=== PATIENT | female | born 1995 | race Caucasian/White ===

== ENCOUNTER 2018-08-12 05:00 | Inpatient (IN) ==
[2018-08-12] MEDS ORDERED: Famotidine 20 MG/2 ML VIAL IVP PRN (05:24)
[2018-08-12] MEDS ORDERED: *HR* Nalbuphine 10 MG/ML AMPUL IVP PRN (05:24)
[2018-08-12] MEDS ORDERED: Ondansetron 4 MG/2 ML VIAL IVP PRN (05:24)
[2018-08-12] MEDS ORDERED: Naloxone 0.4 MG/ML INJ IVP PRN (05:24)
[2018-08-12] MEDS ORDERED: Ringers Solution, Lactated 1,000 ML IVC SCH (05:30)
[2018-08-12] MEDS ORDERED: Oxytocin 20 units/ LR 1000 mL 20 UNIT/1,000 ML BAG IVC SCH ×2 (06:00→16:15)
[2018-08-12 06:15] LABS: Amphetamine Screen,Urine Negative ng/mL (Cutoff=1000); Barbiturate Screen,Urine Negative ng/mL (Cutoff=200); Benzodiazepines Screen,Urine Negative ng/mL (Cutoff=300)
[2018-08-12 06:16] LABS: Cannabinoid Screen,Urine Negative ng/mL (Cutoff = 50); Cocaine Screen,Urine Negative ng/mL (Cutoff= 300); Opiate Screen,Urine Negative ng/mL (Cutoff=300); Phencyclidine Screen,Urine Negative ng/mL (Cutoff=25)
[2018-08-12 06:24] LABS: Basophils % 0.2 %; Eosinophils # 0.1 K/mcL (0.0-0.6); Eosinophils % 0.5 %; Hematocrit 35.1 % (35.3-44.9); Immature Granulocytes % 0.4 % (0-4); Lymphocytes # 2.5 K/mcL (0.6-4.6); Mean Corpuscular HGB Conc 31.3 g/dL (31.6-35.5); Mean Corpuscular Hemoglobin 24.9 pg (28.0-33.3); Mean Corpuscular Volume 79.4 fL (83.0-100.0); Mean Platelet Volume 10.8 fL (9.4-12.4); Monocytes # 0.7 K/mcL (0.0-1.3); Neutrophils # 8.6 K/mcL (1.6-8.9); Platelet Count 289 K/mcL (140-400); Red Blood Count 4.42 M/mcL (3.82-4.97); Red Cell Distribution Width 13.9 % (11.5-14.5); Segmented Neutrophils % 71.9 %
--- NOTE | 2018-08-12 07:45 | Anesthesia Evaluation PreOp ---
Date of Encounter: 08/12/18 Time of Encounter: 07:43 - Past History Planned Operation: rafat Cardiac History: Denies any Significant Hx Pulmonary History: Denies Any Significant HX VIOLIN RESTORER History: Denies Any Significant HX Other Medical History: Other (Occasional lower back pain since last delivery) Anesthesia History: No Prior Anesthetic Complications, Past Anesthesia : Yes (39 weeks, ) Alcohol Use: none Drug use: none Medications and Allergies Vits96/Iron Fum/Folic [ Tablet] 1 each PO DAILY 08/12/18 [History] Allergy/AdvReac Type Severity Reaction Status Date / Time Amoxicillin Allergy Rash Verified 08/12/18 06:13 - Meds/Allergy Pre-op Review Medications Reviewed: Yes Allergies Reviewed: Yes Beta Blockers on Current Med List: No Anesthesia Results - Labs 08/12/18 05:36 Anesthesia Exam O2 Sat Height 1.57 m Weight 81.193 kg Height: 62 Weight: 179 - HEENT Pupil (Motor): Pupils equal Mallampati: II Teeth: Normal Oral Opening: Greater than 3 - VIOLIN RESTORER LOC: Oriented VIOLIN RESTORER Motor: Normal RUE, Normal LUE, Normal RLE, Normal LLE, Normal Face VIOLIN RESTORER Sensory: Normal: RUE, LUE, RLE, LLE, Face - Cardiac Rhythm: Regular Murmur: None JVD: No Carotid Bruit: No - Pulmonary Respiratory Effort: Symmetrical Anesthesia Assess/Plan ASA Score: 2 Level of consciousness: Cooperative Anesthetic Plan: Epidural Monitoring Plan: Standard Monitors
--- NOTE | 2018-08-12 10:34 | OB Labor Progress Note ---
Date of Encounter: 08/12/18 Time of Encounter: 10:31 Labor Progress Note - Subjective Subjective: Pt reports mild discomfort with contractions. - Cervix Cervix: 3-4/70/-2 - Heart Tones Heart Tones: Category I - [place]: 2-4 minutes - Interventions Interventions: Cook catheter placed using sterile technique. Balloon inflated with 60ml in uterus and 60ml in vagina. Pt tolerated well. - Plan Physician notified: Yes Physician notified details: Dr. Light notified of SVE and murillo placement. Plan: Continue to monitor and titrate pitocin. AROM when murillo out. Anticipate .
[2018-08-12] MEDS ORDERED: Epidural Premix (fent/bupiv) 110 ML EP ONE (10:58)
[2018-08-12] MEDS ORDERED: *HR* Ropivacaine/PF 0.2% 20 ML VIAL ONE (10:59)
[2018-08-12] MEDS ORDERED: Lidocaine -MPF 1% 5 ML AMPUL ONE (10:59)
[2018-08-12] MEDS ORDERED: *HR* FentaNYL (PF) 100 MCG/2 ML VIAL ONE (10:59)
--- NOTE | 2018-08-12 11:24 | Anesthesia Procedures ---
Addendum entered and electronically signed by Feng Ellis CRNA 08/12/18 18:39: Infant Delivery Date: 08/12/18 Delivery Time: 15:52 Original Note: Date of Encounter: 08/12/18 Time of Encounter: 10:50 (procedure end time 1125) Procedures: Anesthesia - Epidural/Spinal Patient ID/Chart reviewed: Yes Patient examined: Yes OB Eval: Gestational age: 39 OB Eval: : 2 OB Eval: Hx Para: 1 OB Eval: Contractions: Non-stressed pattern Consent Obtained: Yes Supplemental Oxygen: None/Room Air Site Prep: Aseptic Technique Patient position: upright Local Anesthetic: Lidocaine 1% Amount of Local Anesthetic used: 2 Touhy Needle Gauge: 18 Touhy Needle Depth (cm): 5 Test Dose (1.5% Lido + Epi): Volume given (mls): 3 Test Dose Result: Negative Loading Dose: Fentanyl (mcg): 100 Loading Dose: Other: 5cc 0.2% ropivicaine Loading Dose Administered: Thru Touhy Needle Infusion Med: 0.125% Bupivacaine w/ 2 mcg/ml Fentanyl Infusion Rate (mls/hr): [address]: Tegaderm Interspace Used: L3-L4 Loss of Resistance (MUMTAZ): Yes Blood: No CSF: No Paresthesia: No
[2018-08-12] MEDS ORDERED: Epidural Premix (fent/bupiv) 110 ML EP SCH (11:30)
--- NOTE | 2018-08-12 12:37 | OB Labor Progress Note ---
Date of Encounter: 08/12/18 Time of Encounter: 12:34 Labor Progress Note - Subjective Subjective: Pt comfortable with epidural. - Cervix Cervix: 6/90/-1 - Heart Tones Heart Tones: Category I - [place]: 1-2.5 minutes - Interventions Interventions: AROM for moderate amount blood tinged fluid. IUPC placed. - Plan Physician notified: Yes Physician notified details: Dr. Light notified of AROM. Plan: Continue to monitor. Anticipate .
[2018-08-12] MEDS ORDERED: Levonorgestrel 52 MG IUD IY ONE (15:42)
--- NOTE | 2018-08-12 16:13 | OB/GYN Procedure Note ---
Delivery - Delivery Date: 08/12/18 Provider: Alannah Light Intrapartum events: none Delivery induction: AROM, oxytocin, murillo Delivery augmentation: rupture of membranes Delivery monitor: external FHT, external uterine, internal uterine Anesthesia: epidural Quantitated Blood Loss: 250 - (s) Infant A Infant Delivery Date: 08/12/18 Delivery Time: 15:52 Presentation: vertex Position: OA Route of delivery: Gender: Female Viability: Viable at 1 minute: 8 at 5 mins: 9 Shoulder Dystocia: not encountered Specimens collected: cord blood, venous cord gases Placenta: spontaneous - Repair Episiotomy: none Laceration Description: None - Complications Delivery complications: none Delivery comments: delivered over intact perineum. Cord delay performed. Cord clamped and cut, gases and blood collected. Placenta held and not sent. Baby was vigorous and not crying. IV pitocin was started after delivery of placenta at 1557. Boggy uterus appreciated. Bimanual performed, IM methergine called for. No hemorrhaging appreciated. Mirena IUD placed manually and without difficulty. Mirena IUD was trimmed. Uterus was firm, fundus appreciated. EBL 250mL. NO repairs required. No lacerations. Baby weight pending.
[2018-08-12] MEDS ORDERED: Measles/Mumps/Rubella Vacc 0.5 ML VIAL SQ PRN (16:14)
[2018-08-12] MEDS ORDERED: Benzocaine/Menthol 56 GM AEROSOL SPRAY TP PRN (16:15)
[2018-08-12] MEDS ORDERED: Lanolin 7 G OINT...G. TP PRN (16:15)
[2018-08-12] MEDS: Acetaminophen 325 MG TABLET PO PRN (20:24)
[2018-08-13 07:01] LABS: Basophils % 0.3 %; Eosinophils % 0.3 %; Hematocrit 33.4 % (35.3-44.9); Hemoglobin 10.5 g/dL (11.5-15.4); Immature Granulocytes % 0.4 % (0-4); Lymphocytes # 2.8 K/mcL (0.6-4.6); Lymphocytes % 19.6 %; Mean Corpuscular HGB Conc 31.4 g/dL (31.6-35.5); Mean Corpuscular Hemoglobin 25.1 pg (28.0-33.3); Mean Corpuscular Volume 79.7 fL (83.0-100.0); Mean Platelet Volume 10.6 fL (9.4-12.4); Monocytes # 1.2 K/mcL (0.0-1.3); Monocytes % 8.3 %; Platelet Count 263 K/mcL (140-400); Red Blood Count 4.19 M/mcL (3.82-4.97); Segmented Neutrophils % 71.1 %
[2018-08-13 07:34] VITALS: BP 102/67
[2018-08-13] MEDS ORDERED: Prenatal Vit/FA 1 EACH TABLET PO SCH (09:00)
[2018-08-13] MEDS: Acetaminophen 325 MG TABLET PO PRN (09:33)
--- NOTE | 2018-08-13 09:57 | OB/GYN Progress Note ---
Date of Encounter: 08/13/18 Time of Encounter: 10:15 - Assessment and Plan (1) Vaginal delivery Current Visit: Yes Status: Acute 23yo s/p at 39+0wks GA, PPD#1 management - tolerating regular diet - passing flatus, voiding independently - minimal vaginal bleeding, PP IUD (Mirena) placed - ambualting independently - normal labs this AM DIspo: OK to DC from home today pending baby status. Will f/u in 4 weeks for PPV. MD OSMAN Subjective - Subjective Principal diagnosis: vaginal delivery Patient reports: appetite normal, voiding normally, pain well controlled, ambulating normally : doing well Objective - Latest Vital Signs Latest vital signs: Vital Signs Temp Pulse Resp BP Pulse Ox 08/13/18 09:37 16 08/13/18 07:33 97.9 F 81 14 102/67 97 08/13/18 04:00 98.4 F 90 14 99/64 97 08/12/18 20:20 98.4 F 95 16 116/75 97 08/12/18 19:20 98.1 F 88 14 125/74 98 08/12/18 18:15 98.0 F 72 16 114/73 97 Intake and Output 08/12/18 08/13/18 08/13/18 23:59 07:59 15:59 Intake Total 1400 / 1400 Output Total 1800 / 1800 2300 / 2300 400 / 400 Balance -1800 / -1800 -900 / -900 -400 / -400 Intake: Oral 1400 / 1400 Output: Urine 1800 / 1800 2300 / 2300 400 / 400 Other: Weight 78.7 kg 74.616 kg Patient Weight 08/13/18 23:59 Weight 74.616 kg - Exam Extremities: Present: normal Abdomen: Present: normal appearance, soft, gravid Uterus: Present: normal, firm - Labs Labs: Laboratory Results - last 24 hr 08/12/18 08/13/18 16:24 06:32 WBC 14.0 H RBC 4.19 Hgb 10.5 L Hct 33.4 L MCV 79.7 L MCH 25.1 L MCHC 31.4 L RDW 14.0 Plt Count 263 MPV 10.6 Immature Gran % 0.4 Seg Neutrophils % 71.1 Lymphocytes % 19.6 Monocytes % 8.3 Eosinophils % 0.3 Basophils % 0.3 Neutrophils # 10.0 H Lymphocytes # 2.8 Monocytes # 1.2 Eosinophils # 0.0 Basophils # 0.0 Baby's Blood Type A RH NEGATIVE Mother's Blood Type A RH NEGATIVE Rhogam Indicated NO
--- NOTE | 2018-08-13 10:37 | Discharge Summary ---
Date of Encounter: 08/13/18 Time of Encounter: 10:35 - Discharge Diagnosis (1) Vaginal delivery Priority: Primary Status: Acute Comments: Patient delivered uncomplicated on 08/12/2018, FT baby girl. Normal apgars and weight. No issues intrapartum and . Normal labwork PPD#1. Patient was meeting all milestones and was therefore discharged to home with scheduled follow up in 4 weeks. Mirena IUD placed (postplacental). MD OSMAN - Discharge Medications Prescriptions: New Ibuprofen [Ibu] 600 mg PO Q6H PRN #60 tablet PRN Reason: cramping No Action Vits96/Iron Fum/Folic [ Tablet] 1 each PO DAILY Home Medications: Vits96/Iron Fum/Folic [ Tablet] 1 each PO DAILY 08/12/18 [History] Ibuprofen [Ibu] 600 mg PO Q6H PRN #60 tablet 08/13/18 [Rx] Allergies/Adverse Reactions: Allergy/AdvReac Type Severity Reaction Status Date / Time Amoxicillin Allergy Rash Verified 08/12/18 06:13 Data Procedures and tests throughout hospitalization: Laboratory Tests 08/12/18 08/12/18 08/12/18 05:36 05:36 16:24 WBC 11.9 H RBC 4.42 Hgb 11.0 L Hct 35.1 L MCV 79.4 L MCH 24.9 L MCHC 31.3 L RDW 13.9 Plt Count 289 MPV 10.8 Immature Gran % 0.4 Seg Neutrophils % 71.9 Lymphocytes % 21.0 Monocytes % 6.0 Eosinophils % 0.5 Basophils % 0.2 Neutrophils # 8.6 Lymphocytes # 2.5 Monocytes # 0.7 Eosinophils # 0.1 Basophils # 0.0 Urine Opiates Screen Negative Ur Barbiturates Screen Negative Ur Phencyclidine Scrn Negative Ur Amphetamines Screen Negative U Benzodiazepines Scrn Negative Urine Cocaine Screen Negative U Marijuana (THC) Screen Negative Ur Drug Screen Interp See Below Baby's Blood Type A RH NEGATIVE Mother's Blood Type A RH NEGATIVE Rhogam Indicated NO 08/13/18 06:32 WBC 14.0 H RBC 4.19 Hgb 10.5 L Hct 33.4 L MCV 79.7 L MCH 25.1 L MCHC 31.4 L RDW 14.0 Plt Count 263 MPV 10.6 Immature Gran % 0.4 Seg Neutrophils % 71.1 Lymphocytes % 19.6 Monocytes % 8.3 Eosinophils % 0.3 Basophils % 0.3 Neutrophils # 10.0 H Lymphocytes # 2.8 Monocytes # 1.2 Eosinophils # 0.0 Basophils # 0.0 Urine Opiates Screen Ur Barbiturates Screen Ur Phencyclidine Scrn Ur Amphetamines Screen U Benzodiazepines Scrn Urine Cocaine Screen U Marijuana (THC) Screen Ur Drug Screen Interp Baby's Blood Type Mother's Blood Type Rhogam Indicated Labs on day of discharge: Labs from last 24 hours 08/13/18 08/12/18 06:32 16:24 WBC 14.0 H RBC 4.19 Hgb 10.5 L Hct 33.4 L MCV 79.7 L MCH 25.1 L MCHC 31.4 L RDW 14.0 Plt Count 263 MPV 10.6 Immature Gran % 0.4 Seg Neutrophils % 71.1 Lymphocytes % 19.6 Monocytes % 8.3 Eosinophils % 0.3 Basophils % 0.3 Neutrophils # 10.0 H Lymphocytes # 2.8 Monocytes # 1.2 Eosinophils # 0.0 Basophils # 0.0 Baby's Blood Type A RH NEGATIVE Mother's Blood Type A RH NEGATIVE Rhogam Indicated NO Date of admission: 08/12/18 05:22 Primary care physician: Mehul Lopez MD Consults: 08/12/18 16:14 Consult to Dress Cap Maker [CONS] Routine Comment: Vaginal delivery, consult needed Discharging clinician: Alannah Light Anticipated date of discharge: 08/13/18 - Patient Status Disposition: Home, Self-Care - Discharge Instructions Follow Up With: Mehul Lopez MD [Primary Care Provider] - Hospital Course [employer] Time Attestation: Total time spent providing and/or coordinating discharge services: Exam - Constitutional Vitals: Temp Pulse Resp BP Pulse Ox 97.9 F 81 16 102/67 97 08/13/18 07:33 08/13/18 07:33 08/13/18 09:37 08/13/18 07:33 08/13/18 07:33 General appearance IM: cachectic, A&O X 0 - Respiratory Respiratory exam: Present: accessory muscle use, CTAB - Cardiovascular Cardiovascular exam IM: Present: RRR - GI/Abdominal GI/Abdominal exam IM: diminished bowel sounds Incision: normal, dry - VTE Reasons for not Prescribing Prophylaxis: Treatment not Indicated - Low risk for VTE
== END 2018-08-13 16:37 | disposition home or self-care (01) | DRG 807 ==
LOC: 1NENULAB 05:22 → 1NENUOBS 18:14
PROVIDERS: ADMIT Obstetrics & Gynecology; ATTEND Obstetrics & Gynecology